=== PATIENT | female | born 1975 | race African-American/Black ===

== ENCOUNTER 2017-04-10 16:27 | Emergency (ER) | payer MEDICAID, OTHER ==
[~2017-04-10] VITALS: Ht 162.6 cm; Wt 61.0 kg
[~2017-04-10 16:27] MED LIST: CLON0.5T PO; DIPH25CA83 PO; DIVAL250 PO; HYDR12.529 PO; SERT100T PO; TOPI100T9 PO
[2017-04-10] MEDS ORDERED: IBUPROFEN 600MG TABLET PO STA (16:48)
[2017-04-10] MEDS ORDERED: ALPRAZOLAM 0.25 MG TABLET PO ONE (17:00)
[2017-04-10 17:12] LABS: UCG SCREEN NEGATIVE
[2017-04-10 17:25] LABS: *AMPHETAMINES SCREEN URINE NEGATIVE (NEGATIVE); *BARBITURATES SCREEN URINE NEGATIVE (NEGATIVE); *BENZODIAZEPINES SCREEN URINE NEGATIVE (NEGATIVE); *COCAINE SCREEN URINE NEGATIVE (NEGATIVE); METHADONE URINE SCREEN NEGATIVE (NEGATIVE); OPIATES URINE SCREEN NEGATIVE (NEGATIVE)
[2017-04-10 17:31] LABS: CANNABINOID URINE SCREEN PRESUMTIVE POSITIVE (NEGATIVE); PHENCYCLIDINE URINE SCREEN PRESUMTIVE POSITIVE (NEGATIVE)
[2017-04-10 17:40] VITALS: BP 141/81
== END 2017-04-10 18:04 | disposition left against medical advice (07) ==
LOC: ER 16:45
DX: S00.81XA Abrasion of other part of head, initial encounter (principal); S30.810A Abrasion of lower back and pelvis, initial encounter; S00.83XA Contusion of other part of head, initial encounter; Y04.8XXA Assault by other bodily force, initial encounter; H53.8 Other visual disturbances; Y93.89 Activity, other specified; Y92.9 Unspecified place or not applicable; Z59.0 Homelessness; F15.20 Other stimulant dependence, uncomplicated; F16.10 Hallucinogen abuse, uncomplicated; F31.9 Bipolar disorder, unspecified; F41.9 Anxiety disorder, unspecified; I10 Essential (primary) hypertension; F12.10 Cannabis abuse, uncomplicated
CPT/HCPCS: 80305; 81025; 99284; Z7610

== ENCOUNTER 2017-11-06 07:20 | Emergency (ER) | payer OTHER ==
[~2017-11-06] VITALS: Ht 162.6 cm; Wt 52.0 kg
[~2017-11-06 07:20] MED LIST changes: +TOP100 PO; -TOPI100T9 PO
[2017-11-06] MEDS ORDERED: SODIUM CHLORIDE 0.9% 1,000 ML IV ONE (08:26)
[2017-11-06] MEDS ORDERED: ONDANSETRON HCL 4MG/2ML VIAL IV ONE ×2 (08:45→11:30)
[2017-11-06 08:46] LABS: BASOPHILS % 0.6 % (0.0-2.0); EOSINOPHILS % 0.2 % (0.0-5.0); HEMATOCRIT. 38.3 % (36.0-48.0); HEMOGLOBIN. 12.9 g/dL (12.0-16.0); LYMPHOCYTES % 12.6 % (20.0-50.0); MEAN CORPUSCULAR HEMOGLOBIN 33.3 pg (28.0-32.0); MEAN PLATELET VOLUME 7.9 fl (7.4-10.4); MONOCYTES % 7.2 % (2.0-8.0); NEUTROPHILS % 79.4 % (40.0-76.0); PLATELET 259 x1000/uL (130-400); RED BLOOD CELL COUNT 3.86 mill/uL (4.2-5.4); RED CELL DISTRIBUTION WIDTH 12.7 % (11.6-14.6)
[2017-11-06 08:52] LABS: CHLORIDE 108 mEq/L (98-107)
[2017-11-06 11:21] LABS: HCG SCREEN NEGATIVE
[2017-11-06 11:53] VITALS: BP 126/86
== END 2017-11-06 11:57 | disposition home or self-care (01) ==
LOC: ER 07:20
DX: R11.2 Nausea with vomiting, unspecified (principal); R19.7 Diarrhea, unspecified; F41.9 Anxiety disorder, unspecified; I10 Essential (primary) hypertension; F31.9 Bipolar disorder, unspecified; F17.200 Nicotine dependence, unspecified, uncomplicated
CPT/HCPCS: 36415; 71045; 80053; 84703; 85025; 87804; 96374; 96376; 99285; J2405; J7030; Z7610

== ENCOUNTER 2017-12-16 11:03 | Emergency (ER) | payer OTHER ==
[~2017-12-16] VITALS: Ht 160 cm; Wt 60.0 kg
[2017-12-16 11:04] VITALS: BP 134/91
== END 2017-12-16 12:15 | disposition left against medical advice (07) ==
LOC: ER 11:03
DX: Z53.21 Procedure and treatment not carried out due to patient leaving prior to being seen by health care provider (principal); F41.9 Anxiety disorder, unspecified; F31.9 Bipolar disorder, unspecified; I10 Essential (primary) hypertension; F10.20 Alcohol dependence, uncomplicated

== ENCOUNTER 2019-01-19 09:47 | Inpatient (IN) | payer OTHER ==
[~2019-01-19] VITALS: Ht 165.1 cm; Wt 64.9 kg
[2019-01-19] MEDS ORDERED: SODIUM CHLORIDE 0.9% 1,000 ML IV ONE ×2 (10:22→11:38)
[2019-01-19] MEDS ORDERED: ONDANSETRON HCL 4MG/2ML INJ IV STA (10:22)
[2019-01-19 10:53] LABS: BASOPHILS % 0.5 % (0.0-2.0); EOSINOPHILS % 0.8 % (0.0-5.0); HEMATOCRIT. 36.5 % (36.0-48.0); HEMOGLOBIN. 12.5 g/dL (12.0-16.0); LYMPHOCYTES % 16.1 % (20.0-50.0); MEAN CORPUSCULAR HEMOGLOBIN 33.3 pg (28.0-32.0); MEAN CORPUSCULAR VOLUME 96.9 fL (81.0-99.0); MEAN PLATELET VOLUME 7.4 fl (7.4-10.4); MONOCYTES % 9.6 % (2.0-8.0); PLATELET 247 x1000/uL (130-400); RED BLOOD CELL COUNT 3.77 mill/uL (4.2-5.4); RED CELL DISTRIBUTION WIDTH 12.8 % (11.6-14.6)
[2019-01-19 10:59] LABS: CHLORIDE 109 mEq/L (98-107)
[2019-01-19] MEDS ORDERED: LORAZEPAM 2MG/ML CPJ IV ONE (11:00)
[2019-01-19 11:02] LABS: ETHANOL BLOOD 276 mg/dL; PARTIAL THROMBOPLASTIN TIME 26.3 sec (23.4-31.0); PROTHROMBIN TIME 9.9 sec (9.6-11.0)
[2019-01-19 11:03] LABS: HCG SCREEN NEGATIVE
[2019-01-19 11:04] LABS: CLARITY URINE CLEAR (CLEAR); COLOR URINE YELLOW (YELLOW); KETONES URINE NEGATIVE (NEGATIVE); LEUKOCYTE ESTERASE URINE NEGATIVE (NEGATIVE); NITRITE URINE POSITIVE (NEGATIVE); OCCULT BLOOD URINE NEGATIVE (NEGATIVE); PH URINE 5.5 (4.5-8.0); PROTEIN URINE NEGATIVE (NEGATIVE); SPECIFIC GRAVITY URINE 1.005 (1.005-1.030); UROBILINOGEN URINE 0.2 E.U./dL (0.2-1.0)
[2019-01-19 11:08] LABS: CREATINE KINASE 247 IU/L (26-192)
[2019-01-19 11:20] LABS: *AMPHETAMINES SCREEN URINE NEGATIVE (NEGATIVE); *BARBITURATES SCREEN URINE NEGATIVE (NEGATIVE); *BENZODIAZEPINES SCREEN URINE NEGATIVE (NEGATIVE); *COCAINE SCREEN URINE NEGATIVE (NEGATIVE); METHADONE URINE SCREEN NEGATIVE (NEGATIVE)
[2019-01-19 11:21] LABS: OPIATES URINE SCREEN NEGATIVE (NEGATIVE); PHENCYCLIDINE URINE SCREEN NEGATIVE (NEGATIVE)
[2019-01-19 11:22] LABS: CANNABINOID URINE SCREEN PRESUMTIVE POSITIVE (NEGATIVE)
[2019-01-19] MEDS ORDERED: METOCLOPRAMIDE HCL 10MG/2ML VIAL IV ONE (11:45)
[2019-01-19] MEDS ORDERED: MORPHINE SULFATE 4 MG/ML CPJ (NOT FOR IM USE) IV ONE (11:45)
[2019-01-19] MEDS ORDERED: CEFTRIAXONE 1 G PREMIX 50 ML IV ONE (11:45)
[2019-01-19] MEDS ORDERED: FOLIC ACID 1 MG, THIAMINE HCL 100 MG, MVI, ADULT NO.1 10 ML in DEXTROSE 5% WATER 1,000 ML IV ONE ×4 (11:45)
[2019-01-19 14:50] VITALS: BP 148/87
[2019-01-19 15:12] VITALS: BP 148/87
[2019-01-19] MEDS ORDERED: OMEP20CA10 PO (15:24)
[2019-01-19] MEDS ORDERED: ONDA4TAB50 PO (15:24)
[2019-01-19] MEDS ORDERED: HYDR25TA MT (15:24)
[2019-01-19] MEDS ORDERED: CLON0.2T MT (15:24)
[2019-01-19 16:00] VITALS: BP 121/77
[2019-01-19] MEDS ORDERED: KETOROLAC 30MG/ML VIAL IV NR (16:00)
[2019-01-19] MEDS ORDERED: ONDANSETRON HCL 4MG/2ML INJ IV PRN (16:00)
[2019-01-19] MEDS: DEXT 5%/0.45% NACL 1000ML 1,000 ML IV SCH ×2 (16:06→22:18)
[2019-01-19] MEDS: PANTOPRAZOLE 40MG DR TABLET PO SCH ×2 (16:07→22:17)
[2019-01-19 20:00] VITALS: BP 122/81
[2019-01-19] MEDS ORDERED: POTASSIUM CHLORIDE 20MEQ TABLET SR PO NR (20:15)
[2019-01-19] MEDS: CHLORDIAZEPOXIDE 25MG CAPSULE PO SCH (20:48)
[2019-01-19] MEDS ORDERED: CLONIDINE 0.1MG TABLET PO PRN (21:15)
[2019-01-19] MEDS ORDERED: IPRATROPIUM/ALBUTEROL 0.5-3(2.5)MG/3ML NEB INH PRN (21:15)
[2019-01-19] MEDS ORDERED: LORAZEPAM 2MG/ML CPJ IV PRN (21:15)
[2019-01-19] MEDS: DIVALPROEX SODIUM 250MG ER TABLET PO SCH (22:17)
[2019-01-19] MEDS: FOLIC ACID 1MG TABLET PO SCH (22:17)
[2019-01-19] MEDS: MULTIVITAMINS,THER W-MINERALS TABLET PO SCH (22:17)
[2019-01-19] MEDS: THIAMINE HCL 100MG TABLET PO SCH (22:17)
[2019-01-19] MEDS: HYDROCHLOROTHIAZIDE 25MG TABLET PO SCH (22:17)
[2019-01-19] MEDS ORDERED: MAGNESIUM 4 G PREMIX 100 ML IV SCH (23:00)
[2019-01-20] VITALS: BP 134/79
[2019-01-20 04:00] VITALS: BP 139/85
[2019-01-20] MEDS: DEXT 5%/0.45% NACL 1000ML 1,000 ML IV SCH ×4 (04:21→23:53)
[2019-01-20] MEDS: CHLORDIAZEPOXIDE 25MG CAPSULE PO SCH ×3 (05:48→21:30)
[2019-01-20] MEDS: PANTOPRAZOLE 40MG DR TABLET PO SCH ×2 (05:48→21:15)
[2019-01-20 07:33] LABS: BASOPHILS % 0.4 % (0.0-2.0); HEMATOCRIT. 33.7 % (36.0-48.0); HEMOGLOBIN. 11.6 g/dL (12.0-16.0); LYMPHOCYTES % 27.3 % (20.0-50.0); MEAN CORPUSCULAR HEMOGLOBIN 33.7 pg (28.0-32.0); MEAN CORPUSCULAR VOLUME 97.7 fL (81.0-99.0); MEAN PLATELET VOLUME 7.9 fl (7.4-10.4); NEUTROPHILS % 63.3 % (40.0-76.0); PLATELET 212 x1000/uL (130-400); RED BLOOD CELL COUNT 3.45 mill/uL (4.2-5.4); RED CELL DISTRIBUTION WIDTH 12.7 % (11.6-14.6)
[2019-01-20 08:00] VITALS: BP 147/84
[2019-01-20] MEDS: TOPIRAMATE 100MG TABLET PO SCH (08:07)
[2019-01-20] MEDS: FOLIC ACID 1MG TABLET PO SCH (08:07)
[2019-01-20] MEDS: DIVALPROEX SODIUM 250MG ER TABLET PO SCH (08:07)
[2019-01-20] MEDS: THIAMINE HCL 100MG TABLET PO SCH (08:07)
[2019-01-20] MEDS: CEFTRIAXONE 1 G PREMIX 50 ML IV SCH (08:07)
[2019-01-20] MEDS: SERTRALINE HCL 100MG TABLET PO SCH (08:07)
[2019-01-20 08:13] LABS: CHLORIDE 104 mEq/L (98-107)
[2019-01-20] MEDS ORDERED: AZITHROMYCIN 500 MG TABLET PO SCH (08:15)
[2019-01-20 08:22] LABS: LDL CHOLESTEROL 40 mg/dL (5-100)
[2019-01-20 08:25] LABS: HDL CHOLESTEROL 122 mg/dL (40-59)
[2019-01-20] MEDS: MULTIVITAMINS,THER W-MINERALS TABLET PO SCH (08:28)
[2019-01-20] MEDS: CLONAZEPAM 0.5MG TABLET PO SCH (08:28)
[2019-01-20] MEDS: CLONIDINE 0.2MG TABLET PO SCH ×2 (08:28→21:15)
[2019-01-20] MEDS: HYDROCHLOROTHIAZIDE 25MG TABLET PO SCH (08:28)
[2019-01-20] MEDS ORDERED: HYDROCHLOROTHIAZIDE 12.5MG CAPSULE PO SCH (09:00)
[2019-01-20] MEDS ORDERED: NICOTINE 21MG PATCH TD SCH (09:00)
[2019-01-20] MEDS: MORPHINE SULFATE 2 MG/ML CPJ (NOT FOR IM USE) IV PRN ×4 (09:12→19:59)
[2019-01-20] MEDS ORDERED: POTASSIUM CHLORIDE 20MEQ TABLET SR PO SCH (10:00)
[2019-01-20 10:21] LABS: VITAMIN B12 SERUM 439 pg/mL (211-911)
[2019-01-20 10:30] LABS: FOLIC ACID (FOLATE) SERUM > 20.00 ng/mL (>5.38)
[2019-01-20 12:00] VITALS: BP 168/94
[2019-01-20] MEDS ORDERED: CEFTRIAXONE 1 G PREMIX 50 ML IV SCH (12:00)
[2019-01-20] MEDS: LORAZEPAM 1MG TABLET PO PRN ×2 (12:38→17:30)
[2019-01-20] MEDS: NICOTINE 21MG PATCH TD SCH (14:00)
[2019-01-20 16:00] VITALS: BP 152/97
[2019-01-20 20:00] VITALS: BP 135/89
[2019-01-21] VITALS: BP 124/79
[2019-01-21] MEDS: MORPHINE SULFATE 2 MG/ML CPJ (NOT FOR IM USE) IV PRN ×3 (00:10→13:18)
[2019-01-21] MEDS: LORAZEPAM 1MG TABLET PO PRN ×3 (00:11→13:12)
[2019-01-21 04:00] VITALS: BP 116/73
[2019-01-21] MEDS: CHLORDIAZEPOXIDE 25MG CAPSULE PO SCH ×2 (06:20→13:12)
[2019-01-21] MEDS: PANTOPRAZOLE 40MG DR TABLET PO SCH (06:20)
[2019-01-21] MEDS: DEXT 5%/0.45% NACL 1000ML 1,000 ML IV SCH (06:23)
[2019-01-21 07:16] LABS: CHLORIDE 107 mEq/L (98-107)
[2019-01-21 07:39] LABS: BASOPHILS % 0.3 % (0.0-2.0); EOSINOPHILS % 3.5 % (0.0-5.0); HEMATOCRIT. 33.1 % (36.0-48.0); HEMOGLOBIN. 11.2 g/dL (12.0-16.0); LYMPHOCYTES % 39.6 % (20.0-50.0); MONOCYTES % 9.7 % (2.0-8.0); NEUTROPHILS % 46.9 % (40.0-76.0); PLATELET 203 x1000/uL (130-400); RED BLOOD CELL COUNT 3.38 mill/uL (4.2-5.4); RED CELL DISTRIBUTION WIDTH 12.5 % (11.6-14.6)
[2019-01-21 08:00] VITALS: BP 112/71
[2019-01-21] MEDS: CEFTRIAXONE 1 G PREMIX 50 ML IV SCH (08:48)
[2019-01-21] MEDS: CLONIDINE 0.2MG TABLET PO SCH (08:48)
[2019-01-21] MEDS: THIAMINE HCL 100MG TABLET PO SCH (08:49)
[2019-01-21] MEDS: FOLIC ACID 1MG TABLET PO SCH (08:49)
[2019-01-21] MEDS: MULTIVITAMINS,THER W-MINERALS TABLET PO SCH (08:49)
[2019-01-21] MEDS: TOPIRAMATE 100MG TABLET PO SCH (08:49)
[2019-01-21] MEDS: SERTRALINE HCL 100MG TABLET PO SCH ×2 (08:49→09:00)
[2019-01-21] MEDS: DIVALPROEX SODIUM 250MG ER TABLET PO SCH (08:49)
[2019-01-21] MEDS: CLONAZEPAM 0.5MG TABLET PO SCH (08:49)
[2019-01-21] MEDS: HYDROCHLOROTHIAZIDE 25MG TABLET PO SCH (08:49)
[2019-01-21] MEDS: NICOTINE 21MG PATCH TD SCH (08:59)
[2019-01-21 15:18] VITALS: BP 117/61
[2019-01-22 05:19] LABS: HIV SCREEN 4G Non Reactive (Non Reactive)
== END 2019-01-21 16:35 | disposition home or self-care (01) | DRG 282 ==
LOC: ER 09:47 → 6EST 12:24 → ENRESERV 13:45
PROVIDERS: ADMIT Internal Medicine; ATTEND Internal Medicine
DX: K85.20 Alcohol induced acute pancreatitis without necrosis or infection (principal); E87.2 Acidosis; E83.42 Hypomagnesemia; K76.0 Fatty (change of) liver, not elsewhere classified; F10.239 Alcohol dependence with withdrawal, unspecified; F31.9 Bipolar disorder, unspecified; E87.6 Hypokalemia; R19.7 Diarrhea, unspecified; F15.90 Other stimulant use, unspecified, uncomplicated; E56.9 Vitamin deficiency, unspecified; G40.909 Epilepsy, unspecified, not intractable, without status epilepticus; I10 Essential (primary) hypertension; F17.210 Nicotine dependence, cigarettes, uncomplicated; D72.821 Monocytosis (symptomatic); K14.0 Glossitis; N39.0 Urinary tract infection, site not specified; Y90.8 Blood alcohol level of 240 mg/100 ml or more; F41.1 Generalized anxiety disorder; Z88.1 Allergy status to other antibiotic agents
CPT/HCPCS: 36415; 74176; 76700; 80048; 80061; 80305; 80320; 81025; 82550; 82607; 82746; 83036; 83605; 83735; 83880; 84443; 84484; 84703; 87077; 87186; 87389; 93005; 96361; 96365; 96375; 99285; J0696; J1885; J2060; J2270; J2405; J2765; J3411; J3475; J3490; J7030; J7070; G0480

== ENCOUNTER 2020-09-28 12:22 | Emergency (ER) | payer OTHER ==
[~2020-09-28] VITALS: Ht 157.5 cm; Wt 64.0 kg
[~2020-09-28 12:22] MED LIST changes: +CLON0.2T MT; +HYDR25TA MT; +OMEP20CA14 PO; +ONDA4TAB50 PO
[2020-09-28] MEDS ORDERED: VISCOUS LIDOCAINE 2% 15 ML UDC MM ONE (12:45)
[2020-09-28] MEDS ORDERED: SODIUM CHLORIDE 0.9% 1,000 ML IV ONE ×3 (12:45)
[2020-09-28] MEDS ORDERED: LORAZEPAM 0.5MG TABLET PO ONE (13:45)
[2020-09-28 13:58] VITALS: BP 122/68
== END 2020-09-28 13:59 | disposition home or self-care (01) ==
LOC: ER 12:22
DX: F41.9 Anxiety disorder, unspecified (principal); F10.129 Alcohol abuse with intoxication, unspecified; I10 Essential (primary) hypertension; F12.10 Cannabis abuse, uncomplicated; F15.10 Other stimulant abuse, uncomplicated; Z98.890 Other specified postprocedural states; Z88.1 Allergy status to other antibiotic agents; Z79.899 Other long term (current) drug therapy; Y90.9 Presence of alcohol in blood, level not specified
CPT/HCPCS: 93005; 96360; 99283; J7030; Z7610

== ENCOUNTER 2020-09-29 10:50 | Emergency (ER) | payer OTHER ==
[~2020-09-29] VITALS: Ht 165.1 cm; Wt 70.0 kg
[2020-09-29 11:03] VITALS: BP 168/111
[2020-09-29] MEDS ORDERED: CLONIDINE 0.1MG TABLET PO ONE (12:00)
[2020-09-29] MEDS ORDERED: VISCOUS LIDOCAINE 2% 15 ML UDC MM PRN (12:00)
== END 2020-09-29 12:51 | disposition home or self-care (01) ==
LOC: ER 10:50
DX: I10 Essential (primary) hypertension (principal); K13.79 Other lesions of oral mucosa; F41.9 Anxiety disorder, unspecified; F31.9 Bipolar disorder, unspecified; F17.200 Nicotine dependence, unspecified, uncomplicated; Z88.3 Allergy status to other anti-infective agents
CPT/HCPCS: 93005; 99283

== ENCOUNTER 2021-04-29 17:24 | Emergency (ER) | payer OTHER ==
[~2021-04-29] VITALS: Ht 157.5 cm; Wt 60.0 kg
[2021-04-29 22:15] VITALS: BP 144/99
[2021-04-29 23:03] LABS: BASOPHILS % 0.8 % (0.0-2.0); EOSINOPHILS % 1.6 % (0.0-5.0); HEMATOCRIT. 35.4 % (36.0-48.0); HEMOGLOBIN. 12.3 g/dL (12.0-16.0); LYMPHOCYTES % 36.8 % (20.0-50.0); MEAN CORPUSCULAR HEMOGLOBIN 32.5 pg (28.0-32.0); MEAN CORPUSCULAR VOLUME 93.9 fL (81.0-99.0); MEAN PLATELET VOLUME 7.7 fl (7.4-10.4); MONOCYTES % 6.5 % (2.0-8.0); NEUTROPHILS % 54.3 % (40.0-76.0); PLATELET 275 x1000/uL (130-400); RED BLOOD CELL COUNT 3.77 mill/uL (4.2-5.4); RED CELL DISTRIBUTION WIDTH 12.7 % (11.6-14.6)
[2021-04-29 23:10] LABS: CHLORIDE 108 mEq/L (98-107)
== END 2021-04-29 23:25 | disposition home or self-care (01) ==
LOC: ER 17:24
DX: M79.645 Pain in left finger(s) (principal); F31.9 Bipolar disorder, unspecified; I10 Essential (primary) hypertension; F12.10 Cannabis abuse, uncomplicated; F15.10 Other stimulant abuse, uncomplicated; Z79.899 Other long term (current) drug therapy
CPT/HCPCS: 36415; 73030; 73130; 80048; 85025; 99284

== ENCOUNTER 2023-12-11 09:59 | Emergency (ER) | payer OTHER ==
[~2023-12-11] VITALS: Ht 157.5 cm; Wt 60.0 kg
[~2023-12-11 09:59] MED LIST changes: -CLON0.5T PO; +CLON0.5T2 PO
[2023-12-11 10:07] VITALS: O2SAT 100
[2023-12-11 11:07] LABS: BASOPHILS % 0.6 % (0.0-2.0); EOSINOPHILS % 0.9 % (0.0-5.0); HEMATOCRIT. 39.3 % (36.0-48.0); HEMOGLOBIN. 13.4 g/dL (12.0-16.0); LYMPHOCYTES % 34.8 % (20.0-50.0); MEAN CORPUSCULAR HEMOGLOBIN 32.5 pg (28.0-32.0); MEAN CORPUSCULAR HGB CONC 34.1 g/dL (31.0-37.0); MEAN CORPUSCULAR VOLUME 95.3 fL (81.0-99.0); MEAN PLATELET VOLUME 8.1 fl (7.4-10.4); MONOCYTES % 8.9 % (2.0-8.0); NEUTROPHILS % 54.8 % (40.0-76.0); PLATELET 295 x1000/uL (130-400); RED BLOOD CELL COUNT 4.13 mill/uL (4.2-5.4); RED CELL DISTRIBUTION WIDTH 12.4 % (11.6-14.6); WHITE BLOOD COUNT 5.9 x1000/uL (4.5-11.0)
[2023-12-11 11:15] LABS: *AMPHETAMINES SCREEN URINE NEGATIVE (NEGATIVE); *BARBITURATES SCREEN URINE NEGATIVE (NEGATIVE); *BENZODIAZEPINES SCREEN URINE NEGATIVE (NEGATIVE); *COCAINE SCREEN URINE NEGATIVE (NEGATIVE); CANNABINOID URINE SCREEN PRESUMPTIVE POSITIVE (NEGATIVE); ECSTASY MDMA SCREEN URINE NEGATIVE (NEGATIVE); METHADONE URINE SCREEN Neg (NEGATIVE); OPIATES URINE SCREEN NEGATIVE (NEGATIVE); PHENCYCLIDINE URINE SCREEN NEGATIVE (NEGATIVE)
[2023-12-11 11:29] LABS: ALANINE AMINOTRANSFERASE 8 IU/L (10-49); ALBUMIN 5.3 g/dL (3.2-4.8); ASPARTATE AMINOTRANSFERASE 20 IU/L (<34); BILIRUBIN TOTAL 0.6 mg/dL (0.1-1.0); CALCIUM 9.8 mg/dL (8.7-10.4); CARBON DIOXIDE 26 mEq/L (21-32); CHLORIDE 108 mEq/L (98-107); GLUCOSE 82 mg/dL (70-105); HCG SCREEN INDETERMINATE; POTASSIUM 4.1 mEq/L (3.5-5.1); PROTEIN TOTAL 8.8 g/dL (6.0-8.3); SODIUM 139 mEq/L (136-145); TROPONIN I HIGH SENSITIVITY 5 ng/L (3.0-34); UREA NITROGEN BLOOD 14 mg/dL (9-23)
[2023-12-11] MEDS ORDERED: BENZ1LOZ73 MT (13:51)
[2023-12-11] MEDS ORDERED: NAPR-681 MT (13:51)
[2023-12-11 13:57] VITALS: BP 148/74; PULSE 70; RESP 16; TEMP 98.9
== END 2023-12-11 13:57 | disposition home or self-care (01) ==
LOC: ER 09:59
DX: J04.0 Acute laryngitis (principal); F15.10 Other stimulant abuse, uncomplicated; F12.10 Cannabis abuse, uncomplicated; I10 Essential (primary) hypertension; Z98.890 Other specified postprocedural states; Z88.1 Allergy status to other antibiotic agents; Z79.899 Other long term (current) drug therapy
CPT/HCPCS: 80053; 80305; 84703; 84702; 85025; 84484; 36415; 70360; 71045; 93005; 99285; Z7610

== ENCOUNTER 2024-09-17 15:58 | Emergency (ER) | payer MEDICAID, MEDICARE, OTHER ==
[~2024-09-17] VITALS: Ht 157.5 cm; Wt 54.4 kg
[~2024-09-17 15:58] MED LIST changes: +BENZ1LOZ73 MT; +NAPR-681 MT
[2024-09-17 16:24] VITALS: TEMP 98.7; O2SAT 100
[2024-09-17] MEDS ORDERED: PRED5TAB48 MT (21:39)
[2024-09-17] MEDS: DEXAMETHASONE 10 MG/ML VIAL IM ONE (21:56)
[2024-09-17 21:58] VITALS: BP 152/95; PULSE 80; RESP 16; O2SAT 100
[2024-09-17] MEDS ORDERED: PYRI50CA2 MT (22:03)
[2024-09-17] MEDS: IBUPROFEN 400MG TABLET PO ONE (22:32)
== END 2024-09-17 22:34 | disposition home or self-care (01) ==
LOC: ER 15:58
DX: G58.8 Other specified mononeuropathies (principal); F31.9 Bipolar disorder, unspecified; I10 Essential (primary) hypertension; F10.90 Alcohol use, unspecified, uncomplicated; F12.90 Cannabis use, unspecified, uncomplicated; F15.90 Other stimulant use, unspecified, uncomplicated; Z98.890 Other specified postprocedural states; Z79.899 Other long term (current) drug therapy; Z88.8 Allergy status to other drugs, medicaments and biological substances; Y90.9 Presence of alcohol in blood, level not specified
CPT/HCPCS: 99283; 96372; J1100

== ENCOUNTER 2025-01-14 06:59 | Emergency (ER) | payer MEDICAID, MEDICARE ==
[~2025-01-14] VITALS: Ht 167.6 cm; Wt 110.0 kg
[~2025-01-14 06:59] MED LIST changes: +PRED5TAB48 MT; +PYRI50CA2 MT
[2025-01-14 07:17] VITALS: TEMP 36.7; O2SAT 100
[2025-01-14] MEDS: ONDANSETRON HCL 4MG TABLET PO ONE (11:15)
[2025-01-14 11:23] VITALS: BP 171/108; PULSE 94; RESP 18; O2SAT 100
== END 2025-01-14 11:35 | disposition home or self-care (01) ==
LOC: ER 06:59
DX: Z00.00 Encounter for general adult medical examination without abnormal findings (principal); F12.10 Cannabis abuse, uncomplicated; F15.10 Other stimulant abuse, uncomplicated; I10 Essential (primary) hypertension; F31.9 Bipolar disorder, unspecified; Z79.899 Other long term (current) drug therapy; Z87.440 Personal history of urinary (tract) infections
CPT/HCPCS: 99283; Q0162; Z7610 ×2

== ENCOUNTER 2025-01-14 12:15 | Emergency (ER) | payer MEDICARE ==
[~2025-01-14] VITALS: Ht 162.6 cm; Wt 66.0 kg
[2025-01-14 12:30] VITALS: O2SAT 98
[2025-01-14 12:33] VITALS: BP 101/60; PULSE 89; RESP 16; TEMP 36.8; O2SAT 100
== END 2025-01-14 12:54 | disposition home or self-care (01) ==
LOC: ER 12:15
DX: T76.21XA Adult sexual abuse, suspected, initial encounter (principal); F12.10 Cannabis abuse, uncomplicated; F15.10 Other stimulant abuse, uncomplicated; F20.9 Schizophrenia, unspecified; I10 Essential (primary) hypertension; Z00.00 Encounter for general adult medical examination without abnormal findings; Z79.899 Other long term (current) drug therapy
CPT/HCPCS: 99281